=== PATIENT | male | born 1995 | race Caucasian/White ===

== ENCOUNTER 2017-09-21 15:06 | Inpatient (IN) | payer BC ==
[2017-09-21] MEDS ORDERED: NS 0.9% 1000 ML* 1,000 ML IV SCH (16:15)
[2017-09-21] MEDS ORDERED: NS 0.9% 1000 ML* 1,000 ML IV ONE (16:15)
[2017-09-21 16:46] LABS: Hematocrit 36 % (42-52); Mean Corpuscular HGB Conc 33 g/dl (31-36); Mean Corpuscular Hemoglobin 25 pg (27-31); Mean Corpuscular Volume 75 fL (80-94); Mean Platelet Volume 8 um3 (7.4-10.4); Red Blood Count 4.85 10^6/ul (4.0-5.4); Red Cell Distribution Width 14 % (10.5-15); White Blood Count 13.4 10^3/ul (3.5-10.8)
[2017-09-21 17:07] LABS: Albumin 3.8 g/dL (3.2-5.2); BUN/Creatinine Ratio 12.9 (8-20); Calcium 9.2 mg/dL (8.6-10.3); EGFR African American 131.9 (>60); EGFR Non-African American 102.6 (>60); Globulin 4.1 g/dL (2-4); Total Bilirubin 0.6 mg/dL (0.2-1.0); Total Protein 7.9 g/dL (6.4-8.9)
[2017-09-21] MEDS ORDERED: Iohexol 300* (CONTRAST) 10 ML SDV IV ONE (17:41)
--- NOTE | 2017-09-21 20:09 | RAD ---
Indication: Right lower quadrant pain. Contrast: Administered 111.1 ml of OMNIPAQUE 300 mg/ml CT of the abdomen and pelvis with oral and IV contrast administration. Coronal and sagittal reconstructed images were obtained. The lung bases demonstrate no pleural fluid, nodules or masses. Heart is of normal size without evidence of pericardial effusion. The liver is normal in size. No focal lesions or intrahepatic ductal dilatation or gallbladder demonstrates no calcified gallstones. No pericholecystic fluid or wall thickening identified. The spleen is normal in size. Pancreas demonstrates no mass or pancreatic duct dilatation. No adrenal masses noted. Kidneys demonstrate symmetric nephrograms with no hydronephrosis. No retroperitoneal adenopathy is noted. Aorta and inferior vena cava are unremarkable. CT of the pelvis demonstrates markedly thickened distal ileum and terminal ileum with adjacent phlegmonous process noted. Additional segment of small bowel superficial to the distal end is also thickened. There is a focus of air at the mesenteric surface of the small intestine and the possibility of a small 2 cm abscess should BE considered. Multiple mesenteric lymph nodes are noted consistent with chronic inflammation. Findings are suspicious for Crohn's disease or inflammatory bowel disease. The prostate and urinary bladder are unremarkable. No other areas of bowel wall thickening is noted. Appendix is visualized and appears to be of normal caliber. A portion of the appendix extends adjacent to the phlegmonous process in the right lower quadrant. IMPRESSION: Segments of wall thickening of the terminal ileum as well as the of the distal ileum with a mesenteric surface fluid collection measuring 2.1 cm. Findings are consistent with inflammatory bowel disease such as Crohn's disease. A small abscess is noted. Additional phlegmonous process is noted adjacent to the terminal. Normal caliber appendix appears to extend adjacent to the phlegmonous process. Findings discussed with Dr. Ward.
[2017-09-21] MEDS ORDERED: Melatonin (NF) 3 MG TAB PO PRN (20:38)
[2017-09-21] MEDS ORDERED: fentaNYL* 50 MCG/ML 2 ML VIAL (100 MCG VIAL) IV SLOW PU PRN (20:38)
[2017-09-21] MEDS ORDERED: Albuterol 2.5 MG/3 ML NEB.SOL* (0.083%) INH PRN (20:38)
[2017-09-21] MEDS ORDERED: oxyCODONE TAB* 5 MG TAB PO PRN (20:38)
[2017-09-21] MEDS ORDERED: Ondansetron INJ* 2 MG/ML VIAL IV PRN (20:38)
[2017-09-21] MEDS ORDERED: FOCALIN 5 MG PO PRN (20:40)
[2017-09-21 21:03] LABS: C Reactive Protein 165.08 mg/L (< 5.00)
[2017-09-21] MEDS: Acetaminophen TAB* 325 MG PO PRN (21:05)
[2017-09-21 21:41] LABS: Erythrocyte Sed Rate 87 mm/Hr (0-14)
[2017-09-21] MEDS ORDERED: Piperacillin/Tazobac ADVAN(*) 3.375 GM in D5W 100 ML BAG* 100 ML IVPB ONE (22:00)
--- NOTE | 2017-09-21 22:14 | CONS ---
CC: [facility] at [facility] * SURGICAL CONSULTATION REPORT: DATE OF CONSULT: 09/21/17 LOCATION: Emergency room. HISTORY OF PRESENT ILLNESS: I was contacted by the emergency room to evaluate Mr. Loza, a 22-year-old gentleman who presented with 4-day history of abdominal pain, mostly in the lower abdomen, at times did radiate to his back, was accompanied with chills, but no fevers and no significant nausea. He was suffering with anorexia. He has had loose bowel movement a couple of days ago. The patient denied any previous similar symptoms. Pain is resolved with rest. He did try to take Tums for the discomfort in the early portion of this pain course. He has not required narcotics while in the emergency room. The patient did present to [facility] today where he was sent for evaluation in the emergency room to rule out appendicitis. PAST MEDICAL HISTORY: ADHD and seasonal allergies. PAST SURGICAL HISTORY: None. MEDICATIONS: Include Focalin. ALLERGIES: He has no known drug allergies. SOCIAL HISTORY: Nonsmoker. 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 He drinks occasionally, last drink was over a week ago. FAMILY HISTORY: He has a sister and a grandmother who have Crohn's disease. Sister was diagnosed at 16. She had repetitive GI symptoms that leading up to her diagnosis along with weight loss. REVIEW OF SYSTEMS: The patient has had chills as described. No fevers. No significant weight loss. No shortness of breath or chest pain. Abdominal complaints as described. No dysuria. Change in bowel habits as described. No bleeding or clotting disorders. No psychiatric illnesses. No headaches or visual disturbances. PHYSICAL EXAMINATION: He is afebrile, heart rate 98, blood pressure 134/84. He is alert and oriented x3, in no apparent distress. Head, Ears, Eyes, Nose and Throat: Normocephalic, atraumatic. Sclerae anicteric. Mucous membranes are moist. Neck: No lymphadenopathy. Lungs: Clear to auscultation bilaterally at the apices. Abdomen is soft, nondistended, tender at right lower quadrant with tenderness to percussion. Negative rebound. No hernias. Tender on the left lower quadrant as well and does describe what will be considered a Rovsing sign. No CVA tenderness. Rectal exam not performed. Extremities: Within normal limits. DIAGNOSTIC STUDIES/LAB DATA: The patient underwent labs and these were reviewed , shows a white count of 13.4 with left shift, H and H 12/36 with an MCV of 75. Chemistry panel shows albumin of 3.8, otherwise normal metabolic panel with a creatinine of 0.93. The patient underwent a CAT scan of the abdomen and pelvis with p.o. and IV contrast. These images were reviewed and it was discussed with the radiologist on- call. Concern was for segmental wall thickening in the terminal ileum on 2 sites with a small fluid collection measuring 2 cm on the mesenteric surface consistent with inflammatory bowel disease, possibly Crohn's. Small abscess was noted, but appeared more phlegmonous. Normal caliber appendix was appreciated extending towards the phlegmon. IMPRESSION: A 22-year-old male with a 4-day history of abdominal pain that has persisted along with anorexia, right lower quadrant pain, and family history of inflammatory bowel disease, now with a radiographic study consistent with IBD and terminal ileitis with perforation. This perforation appears contained. The patient is hemodynamically stable and I believe he will benefit from antibiotics observation at this point and serial abdominal exam, so I discussed the diagnosis with him and his mother. I believe the patient should undergo evaluation by Gastroenterology. Antibiotics should be started and I recommend Zosyn. We will follow the patient for the possibility of needing ileocecectomy if he worsens. My probe would be that the patient will improve without intervention given what is likely to be a diagnosis of Crohn's disease. He will ultimately need colonoscopy in the future. The patient should remain n.p.o. [id number]/CPS #: [id number] [facility]
--- NOTE | 2017-09-21 23:07 | HP ---
H&P (Free Text) History and Physical: [facility] Date/Time: 09/21/20172029 CC: abdominal pain HPI: Mr Loza is a 22YO male HX asthma & ADHD & FamHX of Crohn's reports 3-4 days of waxing/waning RLQ pain associated with intermittent loose stools, but no blood or mucous experienced worsening today prompting an evaluation at [facility] who referred him to [facility] for concern of acute appendicitis. He denies F/C, sweats, N/V, or other issues. Evaluation reveals a CT more compelling for terminal ileitis w/ microperforation than for acute appendicitis. WBCs 13.4K 83% neutrophils, ESR 87 , CRP 165. PMedHx asthma ADHD Ambulatory Orders Focalin 5 mg PO DAILY PRN 09/21/17 Focalin Xr 30 mg PO DAILY 09/21/17 Montelukast Sodium TAB* 10 mg PO DAILY 09/21/17 Proair Respiclick 2 puff INH Q4HR PRN 09/21/17 Allergies No Known Allergies Allergy (Verified 09/21/17 15:20) PSurgHx denies SocHx: no tobacco, mild alcohol, no recreational drugs; single, lives alone, no children; [employer] studying FamHx: Mother: melanoma x2, rheumatologic issues; Father: arrhythmia; mGM: Crohn 's, narcolepsy w/ cataplexy, colon CA; mGF: pulmonary embolism; pGF: Alzheimer's ; Sister: Crohn's (diagnosed at age 16) ROS: as above, otherwise reviewed and all were negative vitals: Vital Signs Temp 36.7 C 09/21/17 15:14 Pulse 93 09/21/17 21:00 Resp 16 09/21/17 15:14 BP 116/59 09/21/17 21:00 Pulse Ox 97 09/21/17 21:00 Intake & Output 09/20/17 09/21/17 09/21/17 23:59 11:59 23:59 Intake Total 1000 Balance 1000 Weight 82.554 kg Intake: IV Fluids 1000 Constitutional: NAD, normally developed, well-nourished white male HEENM: atraumatic; sclera/conjunctiva: non-icteric/clear; hearing: clinically intact; oropharynx: clear, mucosa moist Neck: soft tissue: non-tender; thyroid: normal Pulmonary: clear to auscultation bilaterally, good aeration, no accessory muscle use CV: RR/RR, normal S1S2, no carotid bruit, no jugular venous distention, 2+ B DP/ PT, no edema Abdominal: soft, non-distended, moderate tenderness RLQ with mild rebound and voluntary guarding but no rigidity, normoactive bowel sounds, no hepatosplenomegaly or masses, no costovertebral angle tenderness Musculoskeletal: general: grossly intact; gait: stable Integumental: normal appearance and texture of exposed skin Psychiatric orientation: AA&O to PPS affect: calm mood: cooperative eye contact: good content: reliable responses: timely insight: good Testing: Lab Results 09/21/17 09/21/17 Range/Units 16:29 16:29 WBC 13.4 H (3.5-10.8) 10^3/ul RBC 4.85 (4.0-5.4) 10^6/ul Hgb 12.0 L (14.0-18.0) g/dl Hct 36 L (42-52) % MCV 75 L (80-94) fL MCH 25 L (27-31) pg MCHC 33 (31-36) g/dl RDW 14 (10.5-15) % Plt Count 231 (150-450) 10^3/ul MPV 8 (7.4-10.4) um3 Neut % (Auto) 83.5 H (38-83) % Lymph % (Auto) 6.9 L (25-47) % [place] % (Auto) 8.3 (1-9) % Eos % (Auto) 0.7 (0-6) % Baso % (Auto) 0.6 (0-2) % Absolute Neuts (auto) 11.2 H (1.5-7.7) 10^3/ul Absolute Lymphs (auto) 0.9 L (1.0-4.8) 10^3/ul Absolute Monos (auto) 1.1 H (0-0.8) 10^3/ul Absolute Eos (auto) 0.1 (0-0.6) 10^3/ul Absolute Basos (auto) 0.1 (0-0.2) 10^3/ul Absolute Nucleated RBC 0 10^3/ul Nucleated RBC % 0 ESR 87 H (0-14) mm/Hr Sodium 135 (133-145) mmol/L Potassium 4.0 (3.5-5.0) mmol/L Chloride 100 L (101-111) mmol/L Carbon Dioxide 28 (22-32) mmol/L Anion Gap 7 (2-11) mmol/L BUN 12 (6-24) mg/dL Creatinine 0.93 (0.67-1.17) mg/dL Est GFR ( Amer) 131.9 (>60) Est GFR (Non-Af Amer) 102.6 (>60) BUN/Creatinine Ratio 12.9 (8-20) Glucose 86 (70-100) mg/dL Calcium 9.2 (8.6-10.3) mg/dL Total Bilirubin 0.60 (0.2-1.0) mg/dL AST 15 (13-39) U/L ALT 23 (7-52) U/L Alkaline Phosphatase 102 (34-104) U/L C-Reactive Protein 165.08 H (< 5.00) mg/L Total Protein 7.9 (6.4-8.9) g/dL Albumin 3.8 (3.2-5.2) g/dL Globulin 4.1 H (2-4) g/dL Albumin/Globulin Ratio 0.9 L (1-3) CT abd/pel W, personally reviewed: IMPRESSION: Segments of wall thickening of the terminal ileum as well as the of the distal ileum with a mesenteric surface fluid collection measuring 2.1 cm. Findings are consistent with inflammatory bowel disease such as Crohn's disease. A small abscess is noted. Additional phlegmonous process is noted adjacent to the terminal. Normal caliber appendix appears to extend adjacent to the phlegmonous process. Findings discussed with Dr. Ward. Impression: 22M presenting with 3-4 day of waxing/waning abdominal pain with intermittent loose stools, no blood or mucous; CT finding suspicious for terminal ileitis w/ microperforation concerning for new DX of Crohn's especially given + FamHX DIAGNOSIS & PLAN Primary terminal ileitis w/ microperforation : IVFs : IV piperacillin/tazobactam : pain control : Samy Ward MD surgery evaluated in ED, will follow : GI consult in AM for colonoscopy once acute inflammation adequately improved : supportive care Secondary asthma : albuterol neb PRN ADHS : continue current medication Admission Rational: inpatient for suspected new DX of Crohn's w/ microperforation not anticipated to be adequately evaluated & improved w/i 48h to allow for discharge DVTp: heparin SQ Code Status: full HCP: mother
[2017-09-21] MEDS: NS 0.9% 1000 ML* 1,000 ML IV SCH (23:09)
[2017-09-22] MEDS: Acetaminophen TAB* 325 MG PO PRN (03:21)
[2017-09-22] MEDS: Piperacillin/Tazobac ADVAN(*) 3.375 GM in D5W 100 ML BAG* 100 ML IVPB SCH ×3 (03:24→19:10)
[2017-09-22] MEDS: Omeprazole CAP* 20 MG PO SCH (06:05)
[2017-09-22] MEDS: Heparin VIAL(*) 5000 UNITS/ML VIAL (FIVE THOUSAND) SUBCUT SCH ×3 (06:06→22:00)
[2017-09-22 07:03] LABS: Hematocrit 33 % (42-52); Hemoglobin 11.2 g/dl (14.0-18.0); Mean Corpuscular HGB Conc 34 g/dl (31-36); Mean Corpuscular Hemoglobin 25 pg (27-31); Mean Corpuscular Volume 75 fL (80-94); Mean Platelet Volume 9 um3 (7.4-10.4); Red Blood Count 4.45 10^6/ul (4.0-5.4); Red Cell Distribution Width 14 % (10.5-15); White Blood Count 10.7 10^3/ul (3.5-10.8)
[2017-09-22] MEDS: NS 0.9% 1000 ML* 1,000 ML IV SCH ×3 (07:30→23:06)
[2017-09-22 07:31] LABS: BUN/Creatinine Ratio 9.7 (8-20); Calcium 8.8 mg/dL (8.6-10.3); EGFR African American 131.9 (>60); EGFR Non-African American 102.6 (>60); Potassium 3.9 mmol/L (3.5-5.0)
[2017-09-22] MEDS: Dexmethylphenidate XR (NF) 15 MG CAP PO SCH (09:39)
[2017-09-22] MEDS: Montelukast Sodium TAB* 10 MG PO SCH (09:39)
--- NOTE | 2017-09-22 14:04 | PN ---
Progress Note - Progress Note Date of Service: 09/22/17 Note: Surgery Progress: S: Feels quite a bit better. Pain 1-2/10. No N/V. Isabela clears. Passing freq watery stools (3-4x today); no blood. Current Medications Acetaminophen (Tylenol Tab*) 650 mg PO Q6H PRN PRN Reason: FEVER/PAIN Last Admin: 09/22/17 03:21 Dose: 650 mg Albuterol (Ventolin 2.5 Mg/3 Ml Neb.Guerita*) 2.5 mg INH Q2H PRN PRN Reason: SOB/WHEEZING Dexmethylphenidate HCl (Focalin Xr (Nf)) 30 mg PO DAILY [facility] Last Admin: 09/22/17 09:39 Dose: 30 mg Fentanyl Citrate (Fentanyl*) 25 mcg IV SLOW PU Q4H PRN PRN Reason: PAIN Heparin Sodium (Porcine) (Heparin Vial(*)) 5,000 units SUBCUT Q8HR [facility] Last Admin: 09/22/17 13:56 Dose: 5,000 units Sodium Chloride (Ns 0.9% 1000 Ml*) 1,000 mls @ 125 mls/hr IV PER RATE [facility] Last Admin: 09/22/17 07:30 Dose: 125 mls/hr Piperacillin Sod/Tazobactam (Sod 3.375 gm/ Dextrose) 100 mls @ 25 mls/hr IVPB Q8H [facility] Last Admin: 09/22/17 11:17 Dose: 25 mls/hr Melatonin (Melatonin (Nf)) 3 mg PO BEDTIME PRN; Protocol PRN Reason: SLEEP Montelukast Sodium (Singulair Tab*) 10 mg PO DAILY [facility] Last Admin: 09/22/17 09:39 Dose: 10 mg Omeprazole (Prilosec Cap*) 20 mg PO DAILY@0600 [facility] Last Admin: 09/22/17 06:05 Dose: 20 mg Ondansetron HCl (Zofran Inj*) 4 mg IV Q6H PRN PRN Reason: NAUSEA Oxycodone HCl (Roxycodone Tab*) 5 mg PO Q4H PRN PRN Reason: PAIN O: Vital Signs - 8 hr 09/22/17 09/22/17 07:24 08:00 Temperature 97.8 F Pulse Rate 75 Respiratory 18 18 Rate Blood Pressure 102/55 (mmHg) O2 Sat by Pulse 100 Oximetry Intake and Output Last 24 Hours 09/20/17 09/21/17 09/22/17 09/23/17 06:59 06:59 06:59 06:59 Intake Total 1710 1763 Output Total 730 Balance 1710 1033 Weight 182 lb Intake: IV Fluids 1110 1418 ABX - ZOSYN 110 110 ns 1308 Oral 600 345 Output: Urine 730 Other: Estimated Void Medium Medium # Bowel Movements 1 Estimated Stool Amount Medium Gen: NAD; appears comfortable Heart: reg Lungs: clear Abd: nondistended; +BS; soft w/ moderate tenderness across lower abd w/ guarding ; mild tenderness to percussion. No rigidity. Per patient, much less tender vs last pm. Labs: Laboratory Tests 09/21/17 09/21/17 09/22/17 16:29 16:29 06:48 WBC 13.4 H 10.7 Hgb 12.0 L 11.2 L Neut % (Auto) 83.5 H 81.2 ESR 87 H C-Reactive Protein 165.08 H P3 nl A: prob Crohn's dz (first episode), improving on IV abx P: cont same; discussed w/ hosp; GI to see (the family does have a paper tube machine operator in [place] who follows his sister with Crohns)
--- NOTE | 2017-09-22 15:53 | PN ---
Subjective Date of Service: 09/22/17 Interval History: Mr. Loza is feeling much better today. His abdominal pain is much improved. He is tolerating clear liquid diet. He has had multiple small bouts of diarrhea. He denies other complaint including chest pain, SOB, or nausea. Objective Active Medications: Acetaminophen (Tylenol Tab*) 650 mg PO Q6H PRN Albuterol (Ventolin 2.5 Mg/3 Ml Neb.Guerita*) 2.5 mg INH Q2H PRN Dexmethylphenidate HCl (Focalin Xr (Nf)) 30 mg PO DAILY [facility] Fentanyl Citrate (Fentanyl*) 25 mcg IV SLOW PU Q4H PRN Heparin Sodium (Porcine) (Heparin Vial(*)) 5,000 units SUBCUT Q8HR [facility] Sodium Chloride (Ns 0.9% 1000 Ml*) 1,000 mls @ 125 mls/hr IV PER RATE [facility] Piperacillin Sod/Tazobactam (Sod 3.375 gm/ Dextrose) 100 mls @ 25 mls/hr IVPB Q8H [facility] Melatonin (Melatonin (Nf)) 3 mg PO BEDTIME PRN; Protocol Montelukast Sodium (Singulair Tab*) 10 mg PO DAILY [facility] Omeprazole (Prilosec Cap*) 20 mg PO DAILY@0600 [facility] Ondansetron HCl (Zofran Inj*) 4 mg IV Q6H PRN Oxycodone HCl (Roxycodone Tab*) 5 mg PO Q4H PRN Vital Signs: Temp Pulse Resp BP Pulse Ox 98.0 F 102 16 124/76 100 09/22/17 11:15 09/22/17 11:15 09/22/17 11:15 09/22/17 11:15 09/22/17 11:15 Oxygen Devices in Use Now: None Appearance: Male lying in bed in NAD Eyes: No Scleral Icterus Ears/Nose/Mouth/Throat: Mucous Membranes Moist Neck: Trachea Midline Respiratory: Symmetrical Chest Expansion and Respiratory Effort, Clear to Auscultation Cardiovascular: NL Sounds; No Murmurs; No JVD, No Edema Abdominal: - Lymphatic: No Cervical Adenopathy Extremities: No Edema Skin: No Rash or Ulcers Neurological: Alert and Oriented x 3, NL Muscle Strength and Tone Nutrition: Taking PO's Result Diagrams: 09/22/17 06:48 09/22/17 06:48 Assess/Plan/Problems-Billing Assessment: Mr. Loza is a 22 yo M with a PMH of ADHD who was admitted on 09/21/17 with terminal ileitis and microperforation. - Patient Problems (1) Terminal ileitis Comment: - With abscess. - Symptoms improving, pain improved. - Appeciate surgical consulation, no indication for surgery. - GI consult pending, suspect Crohn's given positive family history. - Continue zosyn. (2) ADHD Comment: - Continue focalin. (3) DVT prophylaxis Comment: - Heparin SQ. (4) Full code status Status and Disposition: Inpatient, anticipate discharge to home when medically stable.
--- NOTE | 2017-09-22 21:24 | CONS ---
GASTROENTEROLOGY CONSULTATION: DATE OF CONSULT: 09/22/17 PRIMARY CARE PHYSICIAN: Replaced By [facility]. HOSPITAL PROVIDER: Dr. Thiago Vargas. REASON FOR CONSULT: RLQ pain, abnormal CT imaging with possible Crohn's disease. HISTORY OF PRESENT ILLNESS: Mr. Loza is a very pleasant 22-year-old male with a past medical history of asthma, ADHD and family history of Crohn's disease, who presented to [facility] ER with complaints of sudden onset right lower quadrant pain that started approximately 5 days ago. He has no previous history of these symptoms. The abdominal discomfort became increasingly severe in intensity and duration, which prompted him to go see a primary care physician at [facility]. After his evaluation he was instructed to come to [facility] ER for possible concerns of acute appendicitis. He admits to subjective chills, denies fevers, nausea, vomiting. He admits to a normal bowel movement daily. Denies melena, hematochezia. His weight has remained stable. Denies dysphagia. He is passing flatus. Of note, his sister was diagnosed with Crohn's at 16 years of age and his maternal grandmother has a history of colon cancer and Crohn's disease as well. Upon arrival to the emergency room, he was noted on CT imaging to have terminal ileitis with microperforation and abscess. Surgery was initially consulted for further evaluation due to CT findings they started the patient on Zosyn. Gastroenterology was consulted for further input and recommendations for likely Crohn's disease. Currently, the patient states he feels significantly better after initiation of Zosyn. He does admit to some mild right lower quadrant pain when drinking clear liquids. He has not had a bowel movement but is passing flatus. He has not had prior endoscopies and colonoscopies. PAST MEDICAL HISTORY: 1. Asthma. 2. ADHD. PAST SURGICAL HISTORY: Denies. MEDICATIONS: Home medications: 1. Focalin. 2. Montelukast sodium. 3. ProAir. Hospital medications include: 1. Acetaminophen p.r.n. 2. Albuterol p.r.n. 3. Focalin. 4. Fentanyl p.r.n. 5. Heparin. 6. Melatonin p.r.n. 7. Singulair daily. 8. Omeprazole daily. 9. Zofran p.r.n. 10. Oxycodone p.r.n. 11. Zosyn q.8 hours. ALLERGIES: No known drug allergies. FAMILY HISTORY: Mother with possible rheumatoid arthritis, melanoma. Father with arrhythmia. Maternal grandmother with Crohn's, narcolepsy, colon cancer. Maternal grandfather with pulmonary embolism. Paternal grandfather with Alzheimer's. Sister with Crohn's diagnosed at age 18. SOCIAL HISTORY: Denies tobacco use, admits to minimal alcohol use. Denies recreational drugs but previous hx of marijuana use. He is studying at [employer]. REVIEW OF SYSTEMS: On a 14-point scale has been reviewed, all pertinent positives and negatives have been noted above in the HPI. PHYSICAL EXAM: Vital Signs: Temperature 98.0, pulse 75, respirations 16, blood pressure 124/76. Generally, the patient is alert and oriented x3, in no acute distress. Well nourished. HEENT: Normocephalic, atraumatic. Extraocular muscles are intact. Neck is supple. Anicteric sclerae bilaterally. Cardiovascular Exam: Regular rate and rhythm. Pulmonary Exam: Clear to auscultation bilaterally. Abdominal Exam: Mild tenderness to palpation in the right lower quadrant, soft, nondistended. No rebound, guarding , or rigidity. Positive bowel sounds in all 4 quadrants. Extremities: No clubbing, cyanosis, or edema. Neurological Exam: No gross focal deficits are appreciated. DIAGNOSTIC STUDIES/LAB DATA: WBC is 10.7, hemoglobin 11.2, hematocrit 33, platelets 200, ESR 87. INR 1.33. Sodium 137, potassium 3.9, chloride 105, CO2 25, anion gap 7, BUN 9, creatinine 0.93, glucose 90, calcium 8.8. Total bilirubin 0.60, AST 15, ALT 23, alkaline phosphatase 102. CRP 165.08. Total protein 7.9. Albumin 3.8. CT of the abdomen and pelvis on 09/21/17 revealed segments of wall thickening in the terminal ileum and distal ileum with mesenteric surface fluid collection measuring 2.1 cm. Findings are consistent with inflammatory bowel disease such as Crohn's disease, a small abscess is noted. Additional phlegmon process was noted adjacent to the terminal ileum. Normal caliber appendix, appears to extend adjacent to the phlegmon process. ASSESSMENT AND PLAN: Mr. Loza is a very pleasant 22-year-old male with family history of Crohn's disease, attention-deficit hyperactivity disorder, who presented with new-onset right lower quadrant pain. On CT imaging, he was noted to have thickening of his terminal ileum and distal ileum with a fluid collection measuring 2.1 cm. On admission, he had an elevated WBC at 13.4, which has now normalized. ESR was elevated to 87. Currently, Zosyn has been initiated for treatment of fluid collection and inflammation in the ileum. 1. Right lower quadrant pain with abnormal CT imaging suggestive of Crohn's disease. The patient is currently on broad-spectrum antibiotics including Zosyn for treatment of the patient's ileitis and fluid collection/abscess and he seems to be feeling much better. Leukocytosis has resolved today. There is no indication for a colonoscopy to be performed emergently at this time given the patient's microperforation and abscess and it would be high risk. We would want the abscess and fluid collection to resolve prior to performing a colonoscopy which should be done in the near future once the abscess resolves so that treatment may be initiated for likely Crohn's disease. The patient is currently on a clear liquid diet per surgical team and there are no plans for surgery at this time. The patient as well as the patient's mother would like to follow up with their known mask inspector back in [place]. I had an extensive discussion with the patient and his family at bedside that he would require close care initially once diagnosed with Crohn's and they prefer to follow with their GI in [place]. We will remain on standby if any further procedures need to be performed or recommendations may need to be provided if he is unable to follow-up in [place]. I suggested for the patient to follow- up with GI during the Holiday break in the next two weeks while he is on oral antibiotics so that he may be closely monitored. If fluid collection does not respond to oral antibiotics then we may need IR assistance in the future for possible drainage. For now, we will continue to monitor patient and provide further recommendations as the patient's clinical course progresses. Case was discussed with Radha Jalloh NP. Thank you, Radha Jalloh NP, for allowing us to participate in the care of your patient. If you should have any further questions or concerns, please do not hesitate to contact us. [id number]/[facility] #: [id number] [place]
[2017-09-23] MEDS: Piperacillin/Tazobac ADVAN(*) 3.375 GM in D5W 100 ML BAG* 100 ML IVPB SCH ×2 (03:37→11:39)
[2017-09-23] MEDS: Omeprazole CAP* 20 MG PO SCH (05:54)
[2017-09-23] MEDS: Heparin VIAL(*) 5000 UNITS/ML VIAL (FIVE THOUSAND) SUBCUT SCH ×3 (05:56→22:03)
[2017-09-23] MEDS: NS 0.9% 1000 ML* 1,000 ML IV SCH (07:11)
[2017-09-23] MEDS: Montelukast Sodium TAB* 10 MG PO SCH (08:55)
[2017-09-23] MEDS: Dexmethylphenidate XR (NF) 15 MG CAP PO SCH (08:55)
--- NOTE | 2017-09-23 10:46 | PN ---
Progress Note - Progress Note Date of Service: 09/23/17 SOAP: Subjective: Pt seen and examined. Pt feels improvement. He has appetite. positive flatus , pos BM. some lower abdo pain. minimal dysuria Appreciate GI consult Objective: Af vss a and o x3 abdo: tense at RLQ, mild tenderness. no rebound. No guarding labs noted Assessment: HD 2 Abdo pain. Likely IBD Family has reached out to his sister's GI. Plan: Ad aceves diet Continue IV abx for 24 more hours. Serial abdo exams. If continued improvement, then d/c on oral abx and f/u as outpt; vs CT scan tomorrow if worsens pt and family understand the plan
--- NOTE | 2017-09-23 17:57 | PN ---
Subjective Date of Service: 09/23/17 Interval History: Mr. Loza states that he is feeling much better today. He is tolerating oral intake well. He reports only some trace pain to his lower abdomen. He has had no nausea or vomiting. Objective Active Medications: Acetaminophen (Tylenol Tab*) 650 mg PO Q6H PRN Albuterol (Ventolin 2.5 Mg/3 Ml Neb.Guerita*) 2.5 mg INH Q2H PRN Dexmethylphenidate HCl (Focalin Xr (Nf)) 30 mg PO DAILY BHAKTI Fentanyl Citrate (Fentanyl*) 25 mcg IV SLOW PU Q4H PRN Heparin Sodium (Porcine) (Heparin Vial(*)) 5,000 units SUBCUT Q8HR BHAKTI Sodium Chloride (Ns 0.9% 1000 Ml*) 1,000 mls @ 125 mls/hr IV PER RATE BHAKTI Piperacillin Sod/Tazobactam (Sod 3.375 gm/ Sodium Chloride) 100 mls @ 25 mls/ hr IVPB Q8H BHAKTI Melatonin (Melatonin (Nf)) 3 mg PO BEDTIME PRN; Protocol Montelukast Sodium (Singulair Tab*) 10 mg PO DAILY BHAKTI Omeprazole (Prilosec Cap*) 20 mg PO DAILY@0600 BHAKTI Ondansetron HCl (Zofran Inj*) 4 mg IV Q6H PRN Oxycodone HCl (Roxycodone Tab*) 5 mg PO Q4H PRN Vital Signs - 8 hr 09/23/17 09/23/17 11:24 15:27 Temperature 98.4 F 99.2 F Pulse Rate 95 105 Respiratory 16 16 Rate Blood Pressure 122/68 125/72 (mmHg) O2 Sat by Pulse 100 100 Oximetry Oxygen Devices in Use Now: None Appearance: Male sitting up in chair in NAD Eyes: No Scleral Icterus Ears/Nose/Mouth/Throat: Mucous Membranes Moist Neck: Trachea Midline Respiratory: Symmetrical Chest Expansion and Respiratory Effort, Clear to Auscultation Cardiovascular: NL Sounds; No Murmurs; No JVD, No Edema Abdominal: - - Soft, nontender, min to no tenderness in lower abdomen, BS + Lymphatic: No Cervical Adenopathy Extremities: No Edema Skin: No Rash or Ulcers Neurological: Alert and Oriented x 3, NL Muscle Strength and Tone Nutrition: Taking PO's Result Diagrams: 09/22/17 06:48 09/22/17 06:48 Microbiology and Other Data: Microbiology 09/21/17 21:37 Aerobic Blood Culture - Preliminary Blood Venous No Growth Day 1 Anaerobic Blood Culture - Preliminary No Growth Day 1 09/21/17 21:37 Aerobic Blood Culture - Preliminary Blood Venous No Growth Day 1 Anaerobic Blood Culture - Preliminary No Growth Day 1 Assess/Plan/Problems-Billing Assessment: Mr. Loza is a 22 yo M with a PMH of ADHD who was admitted on 09/21/17 with terminal ileitis and microperforation. - Patient Problems (1) Terminal ileitis Comment: - With abscess. - Symptoms improving, pain improved. - Appeciate surgical consulation, no indication for surgery. - Appreciate GI consult, suspect Crohn's given positive family history. Patient to follow up with GI in [place]. - Continue zosyn. (2) ADHD Comment: - Continue focalin. (3) DVT prophylaxis Comment: - Heparin SQ. (4) Full code status Status and Disposition: Inpatient, anticipate discharge to home when medically stable.
[2017-09-23] MEDS: ZOSYN 3.375 GM Q8H per EXTENDED INFUSION IVPB SCH ×2 (19:19)
[2017-09-24] MEDS: ZOSYN 3.375 GM Q8H per EXTENDED INFUSION IVPB SCH ×4 (03:20→10:55)
[2017-09-24] MEDS: Heparin VIAL(*) 5000 UNITS/ML VIAL (FIVE THOUSAND) SUBCUT SCH (06:00)
[2017-09-24] MEDS: Omeprazole CAP* 20 MG PO SCH (06:00)
[2017-09-24 07:50] VITALS: BP 118/70
--- NOTE | 2017-09-24 09:32 | PN ---
Progress Note - Progress Note Date of Service: 09/24/17 SOAP: Subjective: Pt seen and examined. Pt continues to feel improvement. He has appetite. positive flatus, pos BM. some lower abdo pain. Objective: Af vss a and o x3 abdo: soft, vol. guarding at lower abdomen, tender. no rebound. Assessment: HD 3 Abdo pain. Likely IBD Plan: Advance diet Continue abx PO for 1 more week--cipro flagyl No need for CT scan now Pt to contact [employer] or my office if worsening pain
[2017-09-24] MEDS: Montelukast Sodium TAB* 10 MG PO SCH (10:19)
[2017-09-24] MEDS: Dexmethylphenidate XR (NF) 15 MG CAP PO SCH (10:21)
--- NOTE | 2017-09-24 10:57 | PN ---
Subjective Date of Service: 09/24/17 Interval History: Mr. Loza states that he is feeling well and eager for discharge. Objective Active Medications: Acetaminophen (Tylenol Tab*) 650 mg PO Q6H PRN Albuterol (Ventolin 2.5 Mg/3 Ml Neb.Guerita*) 2.5 mg INH Q2H PRN Dexmethylphenidate HCl (Focalin Xr (Nf)) 30 mg PO DAILY BHAKTI Fentanyl Citrate (Fentanyl*) 25 mcg IV SLOW PU Q4H PRN Heparin Sodium (Porcine) (Heparin Vial(*)) 5,000 units SUBCUT Q8HR BHAKTI Sodium Chloride (Ns 0.9% 1000 Ml*) 1,000 mls @ 125 mls/hr IV PER RATE BHAKTI Piperacillin Sod/Tazobactam (Sod 3.375 gm/ Sodium Chloride) 100 mls @ 25 mls/ hr IVPB Q8H BHAKTI Melatonin (Melatonin (Nf)) 3 mg PO BEDTIME PRN; Protocol Montelukast Sodium (Singulair Tab*) 10 mg PO DAILY BHAKTI Omeprazole (Prilosec Cap*) 20 mg PO DAILY@0600 BHAKTI Ondansetron HCl (Zofran Inj*) 4 mg IV Q6H PRN Oxycodone HCl (Roxycodone Tab*) 5 mg PO Q4H PRN Vital Signs - 8 hr 09/24/17 09/24/17 09/24/17 03:59 07:45 08:00 Temperature 99.9 F 97.7 F Pulse Rate 74 90 Respiratory 16 16 16 Rate Blood Pressure 122/60 118/70 (mmHg) O2 Sat by Pulse 99 99 Oximetry Oxygen Devices in Use Now: None Appearance: Male ambulating in room in [facility] Eyes: No Scleral Icterus Ears/Nose/Mouth/Throat: Mucous Membranes Moist Respiratory: Symmetrical Chest Expansion and Respiratory Effort, Clear to Auscultation Cardiovascular: NL Sounds; No Murmurs; No JVD, No Edema Abdominal: - - Soft, minimal tenderness to lower abdomen Extremities: No Edema Skin: No Rash or Ulcers Neurological: Alert and Oriented x 3, NL Muscle Strength and Tone Nutrition: Taking PO's Result Diagrams: 09/22/17 06:48 09/22/17 06:48 Microbiology and Other Data: Microbiology 09/21/17 21:37 Aerobic Blood Culture - Preliminary Blood Venous No Growth Day 1 Anaerobic Blood Culture - Preliminary No Growth Day 1 09/21/17 21:37 Aerobic Blood Culture - Preliminary Blood Venous No Growth Day 1 Anaerobic Blood Culture - Preliminary No Growth Day 1 Assess/Plan/Problems-Billing Assessment: Mr. Loza is a 22 yo M with a PMH of ADHD who was admitted on 09/21/17 with terminal ileitis and microperforation. - Patient Problems (1) Terminal ileitis Comment: - With abscess. - Symptoms continue to improve, trace pain - Appeciate surgical consulation, no indication for surgery. - Appreciate GI consult, suspect Crohn's given positive family history. Patient to follow up with GI in [place]. - Switch to cipro/flagyl for further 10 days of antibiotics. (2) ADHD Comment: - Continue focalin. (3) DVT prophylaxis Comment: - Heparin SQ. (4) Full code status Status and Disposition: Inpatient, discharge to home.
--- NOTE | 2017-09-25 00:19 | DS ---
CC: [facility] MEDICINE DISCHARGE SUMMARY: DATE OF ADMISSION: 09/21/17 DATE OF DISCHARGE: 09/24/17 ATTENDING PHYSICIAN: DO Glenn Hoskins (dictation provided by Radha Jalloh NP ). PRINCIPAL DIAGNOSES: 1. Microperforation of terminal ileum with associated abscess. 2. Terminal ileitis with suspected Crohn's disease. SECONDARY DIAGNOSES: 1. Asthma. 2. Attention deficit and hyperactivity disorder. MEDICATIONS AT THE TIME OF DISCHARGE: 1. Cipro 500 mg p.o. b.i.d. x10 days. 2. Flagyl 250 mg p.o. t.i.d. x10 days. 3. Focalin 5 mg p.o. daily p.r.n. 4. Focalin XR 30 mg p.o. daily. 5. Montelukast 10 mg p.o. daily. 6. ProAir 2 puffs inhaled q.4 hours p.r.n. HOSPITAL COURSE: Mr. Loza is a 22-year-old male who presented to the emergency room with report of 3 to 4 days of waxing and waning right lower quadrant pain associated with intermittent loose stools. Please see the dictated H and P from Dr. Thiago Vargas for complete details. In brief, the patient has a family history positive for Crohn's disease including his sister who was diagnosed at age 16. He himself never had a diagnosis of Crohn's disease. In the emergency room, he had an abdomen and pelvis CT that showed the following: "Segments of wall thickening of terminal ileum as well as the distal ileum with mesenteric surface fluid collection measuring 2.1 cm. Findings are consistent with inflammatory bowel disease such as Crohn's disease. A small abscess was noted. Additional phlegmonous process is noted adjacent to the terminal ileum. Normal caliber appendix appears to extend adjacent to the phlegmonous process." Mr. Loza was admitted to the hospital. He was seen in consultation by Dr. Ward. I refer you to his note for complete details. He notes that the perforation appears contained and that the patient was hemodynamically stable and that there is no indication for emergent surgery. The patient was placed on Zosyn antibiotic coverage. The patient was also seen by Dr. Wing from Gastroenterology. She agreed that the patient likely had Crohn's disease and that he should follow up outpatient for likely colonoscopy once his abscess and inflammation resolved. Mr. Loza is doing really well. He has got very minimal to trace pain in lower abdomen. He is ambulating in his room without difficulty, has no fever, has no leukocytosis. Plan is for him to be discharged to home to complete a further 10-day course of Cipro and Flagyl and treatment of his microperforation with abscess. He will go into followup with his family garment looper in [place]. He has also been offered to follow up with [facility] in [place] for any further needs. DISPOSITION: To home. DIET: Regular. ACTIVITY: As tolerated. FOLLOW-UP PLANS: 1. Please follow up with [facility] for any emergent needs and return to the emergency room. 2. Follow up with [facility] garment looper for further evaluation of Crohn's disease. 3. Please consider followup with Dr. Ward if any other concerns or questions from surgical services. TIME SPENT: Approximately 60 minutes were spent on the discharge of this patient, more than half that time was spent with the patient at the bedside reviewing the events leading up this hospitalization, performing the physical exam, and reviewing the plan of care. RADHA JALLOH NP [id number]/[facility] [place] [id number] [place]
== END 2017-09-24 11:35 | disposition home or self-care (01) | DRG 245 ==
LOC: ED 15:06 → SSU 20:36
PROVIDERS: ADMIT Hospitalist; ATTEND Internal Medicine
DX: K50.014 Crohn's disease of small intestine with abscess (principal); K63.1 Perforation of intestine (nontraumatic); F90.9 Attention-deficit hyperactivity disorder, unspecified type; J45.909 Unspecified asthma, uncomplicated; Z83.79 Family history of other diseases of the digestive system; Z72.89 Other problems related to lifestyle; Z82.49 Family history of ischemic heart disease and other diseases of the circulatory system; Z83.2 Family history of diseases of the blood and blood-forming organs and certain disorders involving the immune mechanism; Z80.0 Family history of malignant neoplasm of digestive organs; Z82.0 Family history of epilepsy and other diseases of the nervous system; Z80.8 Family history of malignant neoplasm of other organs or systems; Z82.61 Family history of arthritis
CPT/HCPCS: 36415; 74177; 80048; 80053; 85025; 85610; 85652; 85730; 86140; 87040; A9270-GY; J1644; J2543; Q9967